=== PATIENT | female | born 1970 | race Caucasian/White ===

== ENCOUNTER 2017-05-20 16:16 | Emergency (ER) | payer SELFPAY ==
--- NOTE | ~2017-05-20 | ER ---
PATIENT'S NAME: TRENT HAND [facility] AGE: 46 Y [address] ROOM: [place], [place] [address] LOCATION: ED ADMIT DATE: 05/20/2017 ER/Outpatient Report DISCHARGE DATE: 05/20/2017 FAMILY PHYSICIAN: PHYSICIAN, NO ATTENDING PHYSICIAN: Nhung Kimball Time of patient arrival is 1616. Time of patient's evaluation is 1624. CHIEF COMPLAINT: Anterior leg pain. HISTORY OF PRESENT ILLNESS: This is a 46-year-old female who presents to the ER who states she has noticed some left anterior barreto pain yesterday. She states she has no injury to the area. She states that it is tender to palpate and it shoots pain up her leg. She also states this does make her leg and foot feel numb. She denies any redness or swelling. No fever or chills. No shortness of breath. Denies any other problems at this time. ALLERGIES: PENICILLIN AND CODEINE. MEDICATIONS: Please see medication list in nurse's notes. PAST MEDICAL HISTORY: 1. Bipolar. 2. Insomnia. 3. Cholecystectomy. 4. Hysterectomy. SOCIAL HISTORY: Smokes half pack a day for last 10 years. Denies any drug or alcohol use. REVIEW OF SYSTEMS: All systems reviewed were negative with the exception of those discussed in the HPI. PHYSICAL EXAMINATION: VITAL SIGNS: Weight 5 feet stated, weight 80.2 kg taken, blood pressure is 133/71, pulse 98, respirations 18, temperature 98.8 degrees tympanically, and saturations 96% on room air. Mayra Coma Score is 15. GENERAL: Alert, calm, well-developed female, in no acute distress. LUNGS: Clear to auscultation bilaterally. HEART: Regular rate and rhythm. PATIENT'S NAME: TRENT HAND [facility] AGE: 46 Y [address] ROOM: [place], [place] [address] LOCATION: ED ADMIT DATE: 05/20/2017 ER/Outpatient Report DISCHARGE DATE: 05/20/2017 FAMILY PHYSICIAN: PHYSICIAN, NO ATTENDING PHYSICIAN: Nhung Kimball EXTREMITIES: No clubbing or cyanosis. She does have full range of motion of her lower extremities. She has good pedal pulse bilaterally. She has ecchymoses over her left anterior barreto. There is no erythema. She has a negative Homans sign. No calf swelling. No calf tenderness. No pain anywhere else besides the ecchymosis area. NEUROLOGIC: Cranial nerves II through XII grossly intact. Gait was steady without a limp. LABS AND X-RAYS: None. IMPRESSION: Contusion to left anterior barreto. ASSESSMENT AND PLAN: I did give the patient reassurance. I advised her to the ice, elevate, Tylenol, ibuprofen as needed for pain. She should follow up with primary care physician if it does not improve. The patient understands. MAURISIO IPKE PA-C FOR MD TOMAS PATE/mohan /[id number] d: 05/20/17 2256 t: 05/23/17 0819, OUTPATIENT REPORT
== END 2017-05-20 16:42 | disposition disaster alternative care site (69) ==
LOC: GMED 16:16
DX: S80.12XA Contusion of left lower leg, initial encounter (principal); F31.9 Bipolar disorder, unspecified; Z90.49 Acquired absence of other specified parts of digestive tract; Z88.0 Allergy status to penicillin; Z88.5 Allergy status to narcotic agent; Z90.710 Acquired absence of both cervix and uterus; Z79.899 Other long term (current) drug therapy; X58.XXXA Exposure to other specified factors, initial encounter